=== PATIENT | male | born 1995 | race Caucasian/White ===

== ENCOUNTER 2016-08-03 12:33 | Emergency (ER) | payer BC ==
[2016-08-03 13:56] VITALS: BP 155/90
--- NOTE | 2016-08-03 14:51 | UC ---
Lower Extremity/Ankle HPI - HPI Summary HPI Summary: pt reports that he went running on 07/29/16 and woke with pain that began at heel to right foot then localized to the right lateral side of right foot. Pain worsens with ambulation. Pain is worse in the morning when first gets out of bed - History of Current Complaint Chief Complaint: UCLowerExtremity Stated Complaint: RIGHT FOOT PAIN Time Seen by Provider: 08/03/16 14:43 Hx Obtained From: Patient Onset/Duration: Gradual Onset, Lasting Days Severity Initially: Mild Severity Currently: Moderate Aggravating Factor(s): Standing, Ambulation Alleviating Factor(s): Rest Able to Bear Weight: Yes - Allergies/Home Medications Allergies/Adverse Reactions: Allergies Allergy/AdvReac Type Severity Reaction Status Date / Time No Known Allergies Allergy Verified 08/03/16 13:56 Home Medications: Home Medications NK [No Home Medications Reported] 08/03/16 [History Confirmed 08/03/16] PMH/Surg Hx/FS Hx/Imm Hx Previously Healthy: Yes - Surgical History Surgical History: Yes Surgery Procedure, Year, and Place: left knee MCL repair - Family History Known Family History: Positive: Other - positive FMH for myalgia - Social History Occupation: Student - at [employer] Alcohol Use: Weekly Substance Use Type: None Smoking Status (MU): Never Smoked Tobacco Review of Systems Constitutional: Negative Skin: Negative Eyes: Negative ENT: Negative Respiratory: Negative Cardiovascular: Negative Gastrointestinal: Negative Genitourinary: Negative Motor: Other - pain in right foot with ambulation Neurovascular: Negative Musculoskeletal: Myalgia Neurological: Negative Psychological: Negative All Other Systems Reviewed And Are Negative: Yes Physical Exam Triage Information Reviewed: Yes Appearance: Well-Appearing Vital Signs: Initial Vital Signs Temp 97.6 F 08/03/16 13:54 Pulse 64 08/03/16 13:54 Resp 14 08/03/16 13:54 BP 155/90 08/03/16 13:54 Pulse Ox 100 08/03/16 13:54 Vital Signs Reviewed: Yes Eye Exam: Normal Neck exam: Normal Respiratory Exam: Normal Cardiovascular Exam: Normal Musculoskeletal Exam: Other Musculoskeletal: Positive: Other: - tenderness right mid lateral plantar side of foot with palpation Neurological Exam: Normal Psychological Exam: Normal Skin Exam: Normal Lower Extremity Course/Dx - Differential Dx/Diagnosis Differential Diagnosis/HQI/PQRI: Tendonitis, Other - plantar faciitis Provider Diagnoses: plantar faciitis right foot Discharge - Discharge Plan Condition: Stable Disposition: HOME Patient Education Materials: Plantar Fasciitis Exercises (GEN), Plantar Fasciitis (ED) Referrals: [facility] [place] [facility] [Outside] Non Staff,Doctor [Primary Care Provider] -
== END 2016-08-03 15:03 | disposition home or self-care (01) ==
LOC: UCCORT 12:33
DX: M72.2 Plantar fascial fibromatosis (principal)
CPT/HCPCS: 99212; G0463

== ENCOUNTER 2016-11-13 10:20 | Emergency (ER) | payer BC ==
[2016-11-13 10:33] VITALS: BP 141/92
--- NOTE | 2016-11-13 10:37 | UC ---
Complaint Male HPI - HPI Summary HPI Summary: "I think I have an anal wart." he noticed it today. No pain. He typically uses condoms and is homosexual. - History of Current Complaint Stated Complaint: PERSONAL Time Seen by Provider: 11/13/16 10:23 Hx Obtained From: Patient Onset/Duration: Gradual Onset Timing: Constant Severity Currently: None Aggravating Factor(s): Nothing Alleviating Factor(s): Nothing Associated Signs And Symptoms: Negative: Diaphoresis, Back Pain, Fever, Hematuria, Dysuria, Constipation, Rectal Pain, Penile Swelling, Penile Discharge - Allergies/Home Medications Allergies/Adverse Reactions: Allergies Allergy/AdvReac Type Severity Reaction Status Date / Time No Known Allergies Allergy Verified 08/03/16 13:56 PMH/Surg Hx/FS Hx/Imm Hx Previously Healthy: Yes - Surgical History Surgical History: Yes Surgery Procedure, Year, and Place: left knee MCL repair - Family History Known Family History: Positive: Other - positive FMH for myalgia - Social History Alcohol Use: Weekly Substance Use Type: None Smoking Status (MU): Never Smoked Tobacco Review of Systems Genitourinary: Other - rectal growth. All Other Systems Reviewed And Are Negative: Yes Physical Exam Triage Information Reviewed: Yes Appearance: Well-Appearing, No Pain Distress, Well-Nourished Vital Signs Reviewed: Yes Eye Exam: Normal ENT Exam: Normal Dental Exam: Normal Neck exam: Normal Respiratory Exam: Normal Cardiovascular Exam: Normal Abdominal Exam: Other - at 3 oclock there is a small purple pea sized hemorrhoid. non tender and no ulcerations, no blister. Musculoskeletal Exam: Normal Neurological Exam: Normal Psychological Exam: Normal Skin Exam: Normal Complaint Male Course/Dx - Course Course Of Treatment: we discussed homosexual practices, safe sex, and the hemorrhoid which is likely due to receptive anal sex. - Differential Dx/Diagnosis Provider Diagnoses: hemorrhoid Discharge - Discharge Plan Condition: Good Disposition: HOME Patient Education Materials: Hemorrhoids (ED)
[2016-11-13 14:57] LABS: Syphilis Index < 0.1 Index
== END 2016-11-13 11:01 | disposition home or self-care (01) ==
LOC: UCCORT 10:20
DX: K64.9 Unspecified hemorrhoids (principal)
CPT/HCPCS: 36415; 86592; 86703; 86803; 87491; 87591; 99211; G0463

== ENCOUNTER → 2017-12-06 16:48 | Emergency (ER) | payer SELFPAY ==
[~2017-12-06 16:48] MED LIST: PPD test dose* 5 TU/0.1 ML TEST (*USE PPD ORDER SET*) ONE
--- NOTE | 2017-12-07 09:48 | UC ---
Discharge - Sign-Out/Discharge Documenting (check all that apply): Post-Discharge Follow Up All imaging exams completed and their final reports reviewed: No Studies - Discharge Plan Referrals: No Primary Care Phys,NOPCP [Primary Care Provider] -
== END | disposition home or self-care (01) ==
LOC: OHCORT 16:48
DX: Z00.00 Encounter for general adult medical examination without abnormal findings (principal)